=== PATIENT | female | born 1970 | race Caucasian/White ===

== ENCOUNTER → 2021-11-03 | Outpatient (CLI) | payer OTHER ==
--- NOTE | 2021-11-03 10:07 | RAD ---
EXAM: Lumbar spine, 3 views. HISTORY: Pain. COMPARISON: None. FINDINGS: 3 views of the lumbar spine are obtained. There is no listhesis. The vertebral bodies are n ormal in height. There is mild multilevel endplate remodeling. There are few endplate Schmorl's nodes . There is facet arthropathy primarily at the lumbosacral junction. IMPRESSION: Multilevel degenerative change, described in detail above. No acute osseous finding. Electronically signed by: Vi Kenney MD (11/03/2021 10:04 AM) [id number]
== END ==
LOC: RAD 09:19
PROVIDERS: ATTEND Anesthesiology Pain Medicine
DX: Z02.71 Encounter for disability determination (principal); M47.816 Spondylosis without myelopathy or radiculopathy, lumbar region; M51.46 Schmorl's nodes, lumbar region; M12.88 Other specific arthropathies, not elsewhere classified, other specified site
CPT/HCPCS: 72100